=== PATIENT | female | born 1945 ===

== ENCOUNTER 2018-09-05 19:12 | Emergency (ER) | payer SELFPAY ==
[2018-09-05 19:24] VITALS: BP 115/75; TEMP 99.3; O2SAT 99
[2018-09-05] MEDS ORDERED: Albuterol-Ipratrop 3 mg / 0.5 (3 ml) UD INH STA (19:44)
[2018-09-05] MEDS ORDERED: Albuterol-Ipratrop 3 mg / 0.5 (3 ml) UD ONE (19:47)
[2018-09-05 20:18] LABS: BASO % 0.4 % (0.0-2.0); EOS # 0.2 K/uL (0.0-0.7); EOS % 1.9 % (0.0-4.0); HEMOGLOBIN 16.3 g/dL (12.0-16.0); LYMPH % 10.8 % (20.0-40.0); MEAN CELL VOLUME 96.8 fl (81.0-99.0); MEAN CORPUSCULAR HEMOGLOBIN 32.4 pg (27.0-31.0); MEAN CORPUSCULAR HGB CONC 33.5 g/dL (33.0-37.0); MEAN PLATELET VOLUME 8.1 fl (7.2-11.7); MONO # 0.9 K/uL (0.0-0.8); MONO % 9.3 % (0.0-10.0); NEUT # 7.5 K/uL (1.8-7.0); NEUT % 77.6 % (50.0-75.0); RBC 5.03 Mil/uL (3.80-5.20); RED CELL DISTRIBUTION WIDTH 13.9 % (11.5-14.5); WHITE BLOOD COUNT 9.6 K/uL (4.8-10.8)
--- NOTE | 2018-09-05 20:27 | ED PDOC ---
HPI: Chest Pain Time Seen by Provider: 09/05/18 19:29 Chief Complaint (Nursing): Chest Pain Chief Complaint (Provider): Chest Pain History Per: Patient History/Exam Limitations: no limitations Onset/Duration Of Symptoms: Other (x1 week) Current Symptoms Are (Timing): Still Present Additional Complaint(s): Lorena Tellez, a 72 year old female with a past medical history of migraines, colitis, and bronchitis, presents to the ED complaining of chest pain and productive cough onset x1 week. She reports symptoms are associated with the production of yellow phlegm, shortness of breath at times, feeling tightness in her chest, and subjective fever. She denies nausea, vomiting, diarrhea, and hemoptysis. She further states she is currently visiting from [place], arriving x2 days ago. PCP: none provided Past Medical History Reviewed: Historical Data, Nursing Documentation, Vital Signs Vital Signs: Last Vital Signs Temp 99.3 F 09/05/18 19:17 Pulse 64 09/05/18 19:17 Resp 18 09/05/18 19:17 BP 115/75 09/05/18 19:17 Pulse Ox 99 09/05/18 19:17 - Medical History PMH: Bronchitis, Migraine Other PMH: colitis - Surgical History Other surgeries: bladder surgery, hysterectomy - Family History Family History: States: Unknown Family Hx - Home Medications Home Medications: Ambulatory Orders Medication Instructions Recorded Levofloxacin [Levaquin] 750 mg PO QAM #10 tablet 09/05/18 - Allergies Allergies/Adverse Reactions: Allergies Allergy/AdvReac Type Severity Reaction Status Date / Time caffeine Allergy SHORTNESS Verified 09/05/18 19:24 OF BREATH Review of Systems ROS Statement: Except As Marked, All Systems Reviewed And Found Negative Constitutional: Positive for: Fever (subjective) Cardiovascular: Positive for: Chest Pain, Other (feeling tightness in chest) Respiratory: Positive for: Cough, Shortness of Breath (at times). Negative for: Hemoptysis Physical Exam - Reviewed Nursing Documentation Reviewed: Yes Vital Signs Reviewed: Yes - Physical Exam Skin: Positive for: Normal Color, Warm, DRY Eye Exam: Positive for: EOMI, Normal appearance, PERRL Cardiovascular/Chest: Positive for: Regular Rate, Rhythm. Negative for: Murmur Respiratory: Positive for: Rhonchi (bilateral ) Extremity: Positive for: Normal ROM. Negative for: Deformity Neurologic/Psych: Positive for: Alert, Oriented - Laboratory Results Result Diagrams: 09/05/18 20:13 09/05/18 20:13 - ECG O2 Sat by Pulse Oximetry: 99 (RA) Pulse Ox Interpretation: Normal Medical Decision Making Medical Decision Making: Time: 1941 Initial impression: 72 year old female with productive cough and flu like symptoms Initial plan: --EKG --labs --Influenza --blood culture --Duoneb 3 mL UD 21:29 -Labs reviewed and showed no clinically significant abnormalities. Chest X-ray shows lobar infiltrate right middle lobe. Patient to be hospitalized for right middle lobe pneumonia. Case discussed with Dr. Trammell, hospitalist. 22:30 --Patient evaluated with Dr. Trammell who feels appropriate for discharge due to absence of hypoxia, fever, and leukocytes. Patient is to be discharged with Levaquin Upon provider reevaluation patient is feeling better, is medically stable, and requires no further treatment in the ED at this time. Patient will be discharged home with Levaquin. Counseling was provided and all questions were answered regarding diagnosis. There is agreement to discharge plan. Return if symptoms persist or worsen. Scribe Attestation: Documented by Douglas Ny, acting as a scribe for Parrish Fofana MD. Provider Scribe Attestation: All medical record entries made by the Scribe were at my direction and personally dictated by me. I have reviewed the chart and agree that the record accurately reflects my personal performance of the history, physical exam, medical decision making, and the department course for this patient. I have also personally directed, reviewed, and agree with the discharge instructions and disposition. Disposition - Clinical Impression Clinical Impression: Pneumonia - Patient ED Disposition Is Patient to be Admitted: Yes - Disposition Disposition: Transfer of Care Disposition Time: 21:29 Condition: STABLE
[2018-09-05 20:42] LABS: ALB/GLOB RATIO 1.1 (1.0-2.1); ALBUMIN 3.7 g/dL (3.5-5.0); ALT/SGPT 59 U/L (9-52); AST/SGOT 29 U/L (14-36); B-TYPE NATRIURETIC PEPTIDE 134 pg/ml (0-900); BLOOD UREA NITROGEN 11 mg/dl (7-17); CALCIUM 8.7 mg/dL (8.4-10.2); GFR NON-AFRICAN AMERICAN > 60
[2018-09-05] MEDS ORDERED: Azithromycin 500 MG in Sodium Chloride 0.9% 250 ML IVPB STA (21:21)
[2018-09-05] MEDS ORDERED: cefTRIAXone (Rocephin) 1 gm Inj ONE (21:51)
[2018-09-05] MEDS ORDERED: Azithromycin 500 MG IV IVPB ONE (23:48)
[2018-09-06 06:36] VITALS: PULSE 68; RESP 17
--- NOTE | 2018-09-06 13:27 | CARD ---
APPROVED REPORT Date of service: 09/05/2018 EKG Measurement Heart [id number] <Conclusion> Normal sinus rhythm Inferior infarct, age undetermined Abnormal ECG
--- NOTE | 2018-09-06 16:58 | RAD ---
Date of service: 09/05/2018 HISTORY: chest pain COMPARISON: No prior. FINDINGS: LUNGS: Linear atelectasis or fibrosis is seen in the right base. No definite alveolitis bilaterally. Prominent right hemidiaphragm elevation is appreciate with none on the left. PLEURA: No significant pleural effusion identified, no pneumothorax apparent. CARDIOVASCULAR: No aortic atherosclerotic calcification present. Mild cardiomegaly difficult to exclude. No pulmonary vascular congestion evident. No pulmonary vascular congestion. OSSEOUS STRUCTURES: No significant abnormalities. VISUALIZED UPPER ABDOMEN: Normal. OTHER FINDINGS: None. IMPRESSION: Linear atelectasis or fibrosis right base. No definite alveolitis bilaterally. No pleural effusion or pneumothorax bilaterally. Mild cardiomegaly suspected. No pulmonary vascular congestion. Marked right hemidiaphragm elevation identified.
== END 2018-09-06 01:01 | disposition home or self-care (01) ==
LOC: H.ER 19:12 → UNDOADMOB 21:22 → INTOOBSV 21:22 → H.ERHOLD 21:22 → H.ER 09-06 01:01
DX: J18.9 Pneumonia, unspecified organism (principal); Z90.710 Acquired absence of both cervix and uterus
CPT/HCPCS: 71045; 80053; 83605; 83880; 84484; 85025; 87040; 87804; 93005; 96365; 96367; 99283; J0456; J0696